=== PATIENT | male | born 1990 | race Caucasian/White ===

== ENCOUNTER 2022-10-23 09:12 | Emergency (ER) | payer BC ==
[~2022-10-23] VITALS: Ht 175.3 cm; Wt 68.0 kg
[2022-10-23 09:15] VITALS: BP 133/92
--- NOTE | 2022-10-23 09:20 | NUR ---
pt ambulatory to bed 08
--- NOTE | 2022-10-23 09:30 | NUR ---
PATIENT IS RESTING IN BED. COMPLAINING OF EPIGASTRIC PAIN THAT RADIATES TO RIGHT SIDE AND INCREASED BOWEL URGENCY. CRAMPING PAIN 8/10 LASTING >30SEC. PAIN STARTED THIS MORNING 0830 AFTER HAVING COFFEE AND DONUT FOR BREAKFAST. ALLERGY-Codeine PMH-SEASONAL ALLERGIES FH-DM ON PATERNAL AND MATERNAL SIDE OF FAMILY. NO PREVIOUS SURGERIES
--- NOTE | 2022-10-23 09:49 | NUR ---
DR BURNS ASSESSING PATIENT BEDSIDE
[2022-10-23] MEDS ORDERED: FAMOTIDINE 20 MG TAB PO ONE (10:00)
[2022-10-23] MEDS ORDERED: ALUMINUM HYD/MAG/SIMETHICONE 30 ML UDC PO ONE (10:00)
[2022-10-23] MEDS ORDERED: CRUSHER, PILL MC ONE (10:12)
[2022-10-23] MEDS ORDERED: FAMO-92 PO (10:43)
[2022-10-23 11:26] VITALS: BP 110/72
--- NOTE | 2022-10-23 11:28 | NUR ---
Patient discharged with v/s stable. Written and verbal after care instructions given and explained. Patient verbalized understanding. Ambulatory with steady gait. All questions addressed prior to discharge. Advised to follow up with PMD. PT. STATES THAT HE WILL FOLLOW DIET. NO ACUTE DISTRESS. STATES FEELING BETTER. NO SOB.
== END 2022-10-23 11:26 | disposition home or self-care (01) ==
LOC: MED 09:12
DX: K29.00 Acute gastritis without bleeding (principal); K21.9 Gastro-esophageal reflux disease without esophagitis
CPT/HCPCS: 99283